=== PATIENT | female | born 2000 | race Caucasian/White ===

== ENCOUNTER 2022-12-28 18:49 | Emergency (ER) | payer OTHER, SELFPAY ==
[2022-12-28 19:05] VITALS: BP 147/90; PULSE 100; RESP 16; TEMP 36.8; O2SAT 100; BMI 24.8
--- NOTE | 2022-12-28 19:27 | ED.BACK ---
HPI - Back Pain/Injury General Time Seen by Provider: 19:27 Date Seen: 12/28/22 Chief Complaint: Back Injury/Pain Stated Complaint: Back Pain Time Seen by Provider: 12/28/22 19:27 Source: patient and RN notes reviewed Mode of arrival: ambulatory Limitations: no limitations History of Present Illness HPI Narrative: Patient is a 22-year-old female coming into the ER with back pain starting today. She has tried heat, done Tylenol ibuprofen alternating. 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 She does not remember doing anything to injure her back. She had no pain yesterday. She got up this morning was okay, walked her dog. She took a nap and when she got up from her nap she had difficulty sitting up. She feels pain through the low back. She has had pain radiate down the outside of the right leg mostly. It is not there constantly, happens more with movement. Occasionally she has felt in the left. There has been no bowel or bladder changes. There is no numbness or tingling. She does see a chiropractor but has never had back issues like this before. Any movement such is going to sit up, any position changes are quite painful. It is during position changes that she might feel more of the pain going down the outside of the right leg in the upper part of the leg. No trauma, no smoking, no fevers, is not been ill with anything. Patient states there is no chance for . She came in as the Tylenol ibuprofen just were not touching the pain and she feels she needs more management. She does not believe she has really taken narcotics before, maybe with her tonsillectomy but she does not remember what she used. MD elicited complaint: back pain Related Data Allergies Allergy/AdvReac Type Severity Reaction Status Date / Time No Known Drug Allergies Allergy Verified 12/28/22 19:09 Review of Systems Status of ROS: Reports: 6 or more systems reviewed and unremarkable except as noted in History and below Exam Const: Vital Signs, click to edit/add: Vital Signs - 24 hr 12/28/22 19:05 Temperature 98.2 F Pulse Rate [Pulse Oximeter] 100 Respiratory Rate 16 Blood Pressure [Ri ght Upper Arm] 147/90 H Pulse Oximetry 100 Oxygen Delivery Me thod Room Air Documenting provider has reviewed patient's vital signs: yes Common normals: no apparent distress (But does move slowly and seems to have pain with position changes.), average body habitus, oriented x3, no limitations, healthy appearing and alert General appearance: cooperative, comfortable (When lying still), well kempt and well developed Other: Noted to have some discomfort when asked her to go from lying on the bed to a seated position on the bed. She was able to do it but did move slowly. Neck & C-Spine: Other: No midline tenderness of her neck. Back & Pelvis: Common normals: no thoracic nor lumbar tenderness Other: On palpation of her spine, nontender through its entirety. Does not really seem to have any tenderness over the SI joints. I am not able to elicit pain in the sciatic notch on either side. She indeed does have positive straight leg raising, definitely more so on the right. When you lift her left leg she feels more pain in the low back. Is slow in position changes. Extremity: Common normals: normal to inspection Other: Has no lower extremity edema that is noted. She has good peripheral pulses and normal light touch sensation of her extremities. Neuro: Common normals: oriented x3 Sensorium/orientation: alert Other: Patient did ambulate into the room. She has 5/5 strength throughout her lower extremities. Again, normal light touch sensation. Psych: Appearance: well kempt Course Course Hospital Course: Discussed management with patient. Given there is no trauma, no red flag symptoms, believe she is fine to be managed conservatively. Imaging can always be done if she worsens or is not improving in an adequate time frame. She plans on following up with her chiropractor which is reasonable. We discussed medication management. Vital Signs Vital signs: Initial Vital Signs Temperature 98.2 F 12/28/22 19:05 Temperature Source Temporal Artery Scan 12/28/22 19:05 Pulse Rate 100 12/28/22 19:05 Pulse Rhythm 12/28/22 19:05 Pulse Strength 3+ Normal 12/28/22 19:05 Respiratory Rate 16 12/28/22 19:05 Blood Pressure 147/90 H 12/28/22 19:05 Blood Pressure Mean 109 12/28/22 19:05 Blood Pressure Position Sitting 12/28/22 19:05 Pulse Oximetry 100 12/28/22 19:05 Oxygen Delivery Method 12/28/22 19:05 Vital Signs Temperature 98.2 F 12/28/22 19:05 Pulse Rate 100 12/28/22 19:05 Respiratory Rate 16 12/28/22 19:05 Blood Pressure 147/90 H 12/28/22 19:05 Pulse Oximetry 100 12/28/22 19:05 Oxygen Delivery Method 12/28/22 19:05 Temperature 98.2 F 12/28/22 19:05 Pulse Rate 100 12/28/22 19:05 Respiratory Rate 16 12/28/22 19:05 Blood Pressure 147/90 H 12/28/22 19:05 Pulse Oximetry 100 12/28/22 19:05 Oxygen Delivery Method 12/28/22 19:05 Critical Care Time Critical Care Time Critical Care Time: No Discharge Plan Discharge Clinical Impression: Acute lumbar back pain Patient Disposition: Home, Self-Care Condition: Stable Instructions: Acute Low Back Pain (ED), Lumbar Radiculopathy (ED), Lower Back Exercises (ED) Additional Instructions: Start prednisone and take as prescribed, take prednisone with food to protect her stomach. Can use the flexor all 4 muscle relaxant, this can be sedating, do not recommend driving while you are on this. Take Tylenol 1000 mg 3 times a day baseline for pain. I have written for Toradol which you can follow the directions for, this is an NSAID. You can use this initially for pain, when done with the Toradol, can go back to ibuprofen per bottle directions. I have written for a few tablets of oxycodone if you need something for severe pain until the prednisone is helping. Follow up with your chiropractor as you plan to do. They can direct you on further evaluation and management, if an MRI might be needed in the future. Can increase activity as tolerated. I would typically recommend ice on your back initially but if this is uncomfortable for you, you certainly can use heat if that feels better. Review handouts. If you start noting motor issues or weakness in your legs, have any loss of bowel or bladder function, you need to be re-evaluated. Activity Level: Activity as Tolerated Stand Alone Forms: MyHealth Info Instructions
[2022-12-28 20:20] VITALS: BP 147/90; PULSE 100; RESP 16; TEMP 36.8
== END 2022-12-28 20:20 | disposition home or self-care (01) ==
PROVIDERS: Emergency Provider Family Medicine
DX: M54.50 Low back pain, unspecified (principal)
CPT/HCPCS: 99283